=== PATIENT | male | born 1990 | race Caucasian/White ===

== ENCOUNTER 2024-08-01 16:00 | Emergency (ER) | payer OTHER, MEDICAID ==
[~2024-08-01] VITALS: Ht 185.4 cm; Wt 110.0 kg
[~2024-08-01 16:00] MED LIST: ALBU18; LORA-205; PAROXITINE
[2024-08-01] MEDS: diphenhdrAMINE HCL 50 MG/1 ML VL IV ONE (16:20)
[2024-08-01] MEDS: methylPREDNISolone SOD SUCC 125 MG/2 ML VL IV ONE (16:20)
[2024-08-01] MEDS: DexAMETHasone SOD PHOS 10MG/1ML VIAL INJ IV ONE (16:20)
[2024-08-01] MEDS: FAMOTIDINE (10MG/ML) 2ML VL IV ONE (16:20)
--- NOTE | 2024-08-01 16:20 | ED.PDOC ---
HPI Allergic reaction HPI Comments HPI: Poor Historian. 34-year-old male presents to the emergency department for allergic reaction. Patient after work this morning he went to the dentist to get a root canal done. He then went back to work and then when he came back home a took 1st dose of amoxicillin prescribed to him by his dentist. Patient states having history of penicillin allergy. Patient is started developing itchiness and feeling weak throughout. Vitals: Temp: 97F RR: 20 O2 sat: 98% HR: 138 BP: 117/87 PMH: Anxiety, Depression PSH: Denies Social history: tobacco use, denies ETOH use, denies drug use Meds: unknown allergies: Penicillins REVIEW OF SYSTEMS: CONSTITUTIONAL: Denies acute: fever, diaphoresis, chills, HEAD: Denies acute: headache, photophobia Eyes: Denies acute: Double vision, vision loss, eye pain, eye discharge. EARS: Denies acute: tinnitus, hearing loss, ear discharge, ear pain, THROAT: Denies acute: sore throat, swelling, difficulty swallowing , pain with swallowing, change in voice. NECK: Denies acute: neck pain, neck swelling, stiff neck. HEART: Denies acute : chest pain, palpitations, LUNGS: Denies acute: SOB, wheezing, cough, hemoptysis ABDOMEN: Denies acute: abdominal pain, Nausea, Vomiting, diarrhea, melena , hematemesis, hematochezia SKIN: Denies acute: lesions, EXTREMITIES: Denies acute: calf pain, numbness, tingling, weakness, denies pain in extremity. Denies acute: Low back pain. Neuro: Denies acute: focal neurological deficit, motor or sensory focal neurological deficit, tremors, seizure like activity, confusion, dizziness, change in mental status, loss of bowel or bladder function, cauda equina like symptoms. : Denies acute: dysuria, hematuria, flank pain, increase in urinary frequency. PSYCH: Denies acute: hallucination, suicidal ideation, homicidal ideation. PHYSICAL EXAM: General: Moderate acute distress, awake and alert. Head: normocephalic, atraumatic. Neck: supple, trachea is midline, no swelling. Throat: Normal phonation. No airway swelling, no drooling, no tripoding, no oral obstruction. No tongue swelling, no lip swelling Eyes:, no erythema, no purulent discharge, no proptosis, no icterus. Heart: regular tachycardia, no significant murmur appreciated. Lungs: no apparent respiratory distress, Able to speak in full sentences. No wheezing, no rhonchi, no crackles. No stridors Clear to auscultation bilaterally. Abdomen: non tender to palpation, non distended, soft, no guarding, no rebound, + bowel sounds. Obese Neuro: Awake, Alert, oriented to name, self, situation, follows commands GCS=15. Speech is normal. Skin: no petechia, no purpura, no cyanosis, non-pale, not jaundice. Lower extremities: --no - Pitting edema no deformity, no focal swelling, no calf TTP. Makes eye contact. moves all four extremities. Face: no apparent facial droop. Time Seen by MD: 16:15 Primary Care Provider: DR FRAZIER Reviewed Notes: Nurses Notes, Medications, Allergies Allergies: Coded Allergies: Penicillins (Verified Allergy, Unknown, UNKNOWN, 08/01/24) Home Meds Reported Medications Lorazepam (Ativan) 1 Mg Tab 01/27/10 Albuterol Sulfate (Ventolin Hfa) Aer 01/05/10 [Paroxitine] No Conflict Check 01/05/10 Information Source: Patient Past Medical History PAST MEDICAL HISTORY: Anxiety, Depression Surgical History: Denies all surgeries Family History Family History: Unknown Social History Smoker: Cigarettes, Less Than 1 Pack/Day Alcohol: Denies ETOH Use Drugs: Denies Drug Use Lives In: Home Was a procedure done? Was a procedure done?: No Differential diagnosis (all) Differential Diagnosis: Anaphylaxis, Angioedema, Bronchospasm, Contact Dermatitis, Drug Reaction, Hypotension, Renal Failure, Respiratory Failure, Shock, Urticaria X-Ray, Labs, Meds, VS Vital Signs Date Time Temp Pulse Resp B/P (MAP) Pulse Ox O2 Delivery O2 Flow Rate FiO2 08/01/24 22:13 95 18 146/111 (123) 93 08/01/24 17:36 110 08/01/24 16:34 97.0 138 20 117/87 (97) 98 Lab Test 08/01/24 19:47 08/01/24 19:30 08/01/24 19:06 08/01/24 18:08 Range/Units Lactic Acid Level 3.0 *H 0.4-2.0 mmol/L White Blood Count 15.4 H 4.4-10.8 10^3/uL Red Blood Count 5.53 4.5-5.90 10^6/uL Hemoglobin 18.9 H 13.5-17.5 g/dL Hematocrit 55.7 H 41.0-53.0 % Mean Corpuscular Volume 100.8 H 80.0-100.0 fL Mean Corpuscular Hemoglobin 34.1 H 28.0-32.0 pg Mean Corpuscular Hemoglobin Concent 33.9 32.0-36.0 g/dL Red Cell Distribution Width 13.5 11.8-14.3 % Platelet Count 231 140-450 10^3/uL Mean Platelet Volume 8.4 6.9-10.8 fL Neutrophils (%) (Auto) 90.0 H 37.0-80.0 % Lymphocytes (%) (Auto) 6.3 L 10.0-50.0 % Monocytes (%) (Auto) 3.1 0.0-12.0 % Eosinophils (%) (Auto) 0.2 0.0-7.0 % Basophils (%) (Auto) 0.4 0.0-2.0 % Neutrophils # (Auto) 13.9 H 1.6-8.6 10 ^3/uL Lymphocytes # (Auto) 1.0 0.4-5.4 10 ^3/uL Monocytes # (Auto) 0.5 0-1.3 10 ^3/uL Eosinophils # (Auto) 0 0-0.8 10 ^3/uL Basophils # (Auto) 0.1 0-0.2 10 ^3/uL Nucleated Red Blood Cells 0.0 % Troponin I High Sensitivity 19 5 </=54 ng/L Urine Color Light-orange Yellow Urine Clarity Turbid H Clear Urine pH 6.0 5.0-9.0 Urine Specific [place] 1.017 1.001-1.035 Urine Protein 1+ H Negative Urine Ketones Negative Negative Urine Blood Trace H Negative /uL Urine Nitrite Negative Negative Urine Bilirubin Negative Negative Urine Urobilinogen Normal Negative mg/dL Urine Leukocyte Esterase Negative Negative /uL Urine RBC 3 0 - 3 /hpf Urine WBC 15 0 - 3 /hpf Urine Squamous Epithelial Cells Few <5 /hpf Urine Amorphous Crystals Few None Seen /hpf Urine Bacteria Few H None Seen /hpf Urine Mucus Few None Seen Urine Glucose Trace Normal mg/dL Urine Opiates Screen Neg NEGATIVE Urine Fentanyl Screen Neg NEGATIVE Urine Barbiturates Screen Neg NEGATIVE Urine Phencyclidine Screen Neg NEGATIVE Urine Amphetamines Screen Neg NEGATIVE Urine Benzodiazepines Screen Neg NEGATIVE Urine Cocaine Screen Neg NEGATIVE Urine Cannabinoids Screen Neg NEGATIVE Test 08/01/24 16:37 Range/Units White Blood Count 18.9 H 4.4-10.8 10^3/uL Red Blood Count 6.22 H 4.5-5.90 10^6/uL Hemoglobin 21.3 *H 13.5-17.5 g/dL Hematocrit 61.7 H 41.0-53.0 % Mean Corpuscular Volume 99.2 80.0-100.0 fL Mean Corpuscular Hemoglobin 34.3 H 28.0-32.0 pg Mean Corpuscular Hemoglobin Concent 34.5 32.0-36.0 g/dL Red Cell Distribution Width 13.9 11.8-14.3 % Platelet Count 380 140-450 10^3/uL Mean Platelet Volume 8.9 6.9-10.8 fL Neutrophils (%) (Auto) 58.6 37.0-80.0 % Lymphocytes (%) (Auto) 35.4 10.0-50.0 % Monocytes (%) (Auto) 3.9 0.0-12.0 % Eosinophils (%) (Auto) 1.2 0.0-7.0 % Basophils (%) (Auto) 0.9 0.0-2.0 % Neutrophils # (Auto) 11.1 H 1.6-8.6 10 ^3/uL Lymphocytes # (Auto) 6.7 H 0.4-5.4 10 ^3/uL Monocytes # (Auto) 0.7 0-1.3 10 ^3/uL Eosinophils # (Auto) 0.2 0-0.8 10 ^3/uL Basophils # (Auto) 0.2 0-0.2 10 ^3/uL Nucleated Red Blood Cells 0.1 % Sodium Level 138 136-145 mmol/L Potassium Level 3.9 3.5-5.1 mmol/L Chloride Level 101 98-107 mmol/L Carbon Dioxide Level 22 20-31 mmol/L Anion Gap 15 5-15 Blood Urea Nitrogen 9 9-23 mg/dL Creatinine 1.17 0.700-1.30 mg/dL Glomerular Filtration Rate Calc 83 >90 mL/min BUN/Creatinine Ratio 7.7 L 10.0-20.0 Serum Glucose 198 H 74-106 mg/dL Lactic Acid Level 3.8 *H 0.4-2.0 mmol/L Calcium Level 10.2 8.7-10.4 mg/dL Magnesium Level 2.1 1.6-2.6 mg/dL Total Bilirubin 1.6 H 0.2-1.0 mg/dL Aspartate Amino Transferase (AST) 66 H 13-40 U/L Alanine Aminotransferase (ALT) 70 H 7-40 U/L Alkaline Phosphatase 78 46-116 U/L Troponin I High Sensitivity 3 L </=54 ng/L Total Protein 7.3 5.7-8.2 g/dL Albumin 4.2 3.2-4.8 g/dL Current Medications Medications (Trade) Dose Ordered Sig/Stephanie Route Start Time Stop Time Status Last Admin Sodium Chloride 1,000 ml @ 1,000 mls/hr Q1H ONCE IV 08/01/24 16:15 08/01/24 17:14 DC 08/01/24 16:31 Dexamethasone Sodium Phosphate (Decadron Injection) 20 mg ONCE ONCE IV 08/01/24 16:15 08/01/24 16:17 DC 08/01/24 16:20 Methylprednisolone Sodium Succinate (Solu Medrol) 250 mg ONCE ONCE IV 08/01/24 16:15 08/01/24 16:17 DC 08/01/24 16:20 Famotidine (Pepcid Injection) 20 mg ONCE ONCE IV 08/01/24 16:15 08/01/24 16:17 DC 08/01/24 16:20 Diphenhydramine HCl (Benadryl Injection) 50 mg ONCE ONCE IV 08/01/24 16:15 08/01/24 16:17 DC 08/01/24 16:20 Clindamycin Phosphate 50 ml @ 50 mls/hr ONCE ONCE IV 08/01/24 20:15 08/01/24 21:14 DC 08/01/24 21:[address] [address] Ph: [phone] DIAGNOSTIC IMAGING Diagnostic Imaging Report : [id number] Signed PATIENT: J LUIS PRAJAPATI ACCT: [id number] UNIT: [id number] : 1990 LOC: ER ROOM / BED: / AGE / SEX: 34 / M ADM STATUS: REG ER SERVICE 15 ORDERING PHYSICIAN: GERI RIVERA DO PROCEDURE(s): CXRP - CHEST PORTABLE REASON: allergic rxn ORDER NUMBER(s): [id number], ACCESSION NUMBER(s): [id number] CHEST RADIOGRAPH Indication: allergic rxn Technique: Single frontal view of the chest was obtained Comparison: None FINDINGS: Lines and Tubes: None Lungs: The left costophrenic angle is not included in the image. Otherwise, no focal consolidation Pleura: No effusion. No pneumothorax. Cardiomediastinal contours: Unremarkable Bones: No acute osseous abnormality. IMPRESSION: The left costophrenic angle is outside the field of view. Otherwise, no acute cardiopulmonary disease. ATED BY: EBONIE DOSHI DO DICTATED DATE/TIME: 08/01/241852 SIGNED BY: EBONIE DOSHI DO SIGNED DATE/TIME: 08/01/241852 CC: Time of 1ST Reevaluation: 18:54 Reevaluation 1ST: Improved Time of 2ND Reevaluation: 20:46 (The case was discussed with the [facility] admitting team (HPI, physical exam, labs and diagnostic tests that were available at the time of disposition, ED course, treatment plan) on the phone. They agreed to transfer the patient by ALS to their facility for further evaluation and treatment of the patient's presentation. Authorization #[id number]. Kianauber) Reevaluation 2ND: Improved Patient Education/Counseling: Diagnosis, Treatment Family Education/Counseling: No Family Present Comments Patient presented with the above HPI.---allergic reaction---workup was initiated. patient was found with the above mentioned diagnosis. Patient was given: Benadryl, Pepcid, Solu-Medrol, Decadron, fluids. Patient was given antibiotics given his leukocytosis and an elevated lactic acid and initial tachycardia. Patient was given 2 L normal saline bolus Patient ED course and VS have been stabilized. Patient has been reassessed in the ED and remained in a stable condition. Pertinent incidental findings were discussed with the patient and/or family. Patient/family voices understanding and is agreeable with plan. Patient has been observed in the ED adequate length of time to insure improvement/stability. patient was transferred to [facility] per insurance requirement to the medicine team for further evaluation and treatment of their presentation. All the reports of any imaging studies that were ordered by myself were reviewed by myself. Departure 1 Departure Time of Disposition: 18:16 Impression: Primary Impression: Allergic reaction Additional Impressions: Leukocytosis Elevated lactic acid level UTI (urinary tract infection) Disposition: 02 SHORT TERM HOSPITAL Admit to: Tele Condition: Guarded Discharged With: Self Critical Care Note Critical Care Time?: Yes (45 min-critical care time only) I personally scribed for GERI RIVERA DO ([email or web address]) on 08/01/24 at 17:22. Electronically submitted by Scot Carter ([email or web address]). I personally scribed for GERI RIVERA DO ([email or web address]) on 08/01/24 at 20:51. Electronically submitted by Wendy Durant ([email or web address]). GERI RIVERA DO Aug 01, 2024 16:20
[2024-08-01] MEDS: SODIUM CHLORIDE 0.9% 1,000 ML IV ONE ×2 (16:31→21:30)
[2024-08-01 17:05] LABS: Basophils # (auto) 0.2 10 ^3/uL (0-0.2); Mean Corpuscular Volume 99.2 fL (80.0-100.0); Monocytes # (auto) 0.7 10 ^3/uL (0-1.3); Neutrophils % (auto) 58.6 % (37.0-80.0)
[2024-08-01 17:07] LABS: Basophils % (auto) 0.9 % (0.0-2.0); Eosinophils # (auto) 0.2 10 ^3/uL (0-0.8); Eosinophils % (auto) 1.2 % (0.0-7.0); Lymphocytes # (auto) 6.7 10 ^3/uL (0.4-5.4); Lymphocytes % (auto) 35.4 % (10.0-50.0); Mean Corpuscular Hemoglobin 34.3 pg (28.0-32.0); Mean Corpuscular Hgb Conc. 34.5 g/dL (32.0-36.0); Monocytes % (auto) 3.9 % (0.0-12.0); Neutrophils # (auto) 11.1 10 ^3/uL (1.6-8.6); Nucleated Red Blood Cells % 0.1 %; Platelet Count (auto) 380 10^3/uL (140-450); Red Blood Cells 6.22 10^6/uL (4.5-5.90); Red Cell Distribution Width 13.9 % (11.8-14.3); White Blood Cell 18.9 10^3/uL (4.4-10.8)
[2024-08-01 17:14] LABS: Hemoglobin 21.3 g/dL (13.5-17.5)
[2024-08-01 17:15] LABS: Hematocrit 61.7 % (41.0-53.0)
[2024-08-01 17:26] LABS: Albumin 4.2 g/dL (3.2-4.8); Alkaline Phosphatase 78 U/L (46-116); Anion Gap 15 (5-15); BUN/Creatinine Ratio 7.7 (10.0-20.0); Calcium 10.2 mg/dL (8.7-10.4); Carbon Dioxide 22 mmol/L (20-31); Chloride 101 mmol/L (98-107); Magnesium 2.1 mg/dL (1.6-2.6); Potassium 3.9 mmol/L (3.5-5.1); Sodium 138 mmol/L (136-145)
[2024-08-01 17:27] LABS: Total Protein 7.3 g/dL (5.7-8.2)
[2024-08-01 18:00] LABS: Alanine Aminotransferase 70 U/L (7-40); Aspartate Aminotransferase 66 U/L (13-40); Bilirubin, Total 1.6 mg/dL (0.2-1.0); Blood Urea Nitrogen 9 mg/dL (9-23); Glucose 198 mg/dL (74-106)
--- NOTE | 2024-08-01 18:55 | DVH ---
CHEST RADIOGRAPH Indication: allergic rxn Technique: Single frontal view of the chest was obtained Comparison: None FINDINGS: Lines and Tubes: None Lungs: The left costophrenic angle is not included in the image. Otherwise, no focal consolidation Pleura: No effusion. No pneumothorax. Cardiomediastinal contours: Unremarkable Bones: No acute osseous abnormality. IMPRESSION: The left costophrenic angle is outside the field of view. Otherwise, no acute cardiopulmonary diseas e.
[2024-08-01 19:30] LABS: Lactic Acid w/Reflex 3.8 mmol/L (0.4-2.0)
[2024-08-01 19:59] LABS: Eosinophils # (auto) 0 10 ^3/uL (0-0.8)
[2024-08-01 20:01] LABS: Basophils # (auto) 0.1 10 ^3/uL (0-0.2); Basophils % (auto) 0.4 % (0.0-2.0); Eosinophils % (auto) 0.2 % (0.0-7.0); Hematocrit 55.7 % (41.0-53.0); Hemoglobin 18.9 g/dL (13.5-17.5); Lymphocytes % (auto) 6.3 % (10.0-50.0); Mean Corpuscular Hemoglobin 34.1 pg (28.0-32.0); Mean Corpuscular Hgb Conc. 33.9 g/dL (32.0-36.0); Mean Corpuscular Volume 100.8 fL (80.0-100.0); Monocytes # (auto) 0.5 10 ^3/uL (0-1.3); Monocytes % (auto) 3.1 % (0.0-12.0); Neutrophils # (auto) 13.9 10 ^3/uL (1.6-8.6); Platelet Count (auto) 231 10^3/uL (140-450); Red Blood Cells 5.53 10^6/uL (4.5-5.90); Red Cell Distribution Width 13.5 % (11.8-14.3); White Blood Cell 15.4 10^3/uL (4.4-10.8)
[2024-08-01 20:49] LABS: Amphetamine Screen, Urine Neg (NEGATIVE); Barbiturate Scree,Urine Neg (NEGATIVE); Benzodiazephine Screen, Urine Neg (NEGATIVE); Cannabinoid Screen, Urine Neg (NEGATIVE); Cocaine Screen, Urine Neg (NEGATIVE); Opiate Scree,Urine Neg (NEGATIVE); Phencyclidine Screen, Urine Neg (NEGATIVE)
[2024-08-01 20:53] LABS: Urine Amorphous Crystal FEW /hpf (None Seen); Urine Bacteria FEW /hpf (None Seen); Urine Blood TRACE /uL (Negative); Urine Clarity Turbid (Clear); Urine Color Light-Orange (Yellow); Urine Mucus FEW (None Seen); Urine Protein, UAD 1+ (Negative); Urine Specific Gravity 1.017 (1.001-1.035); Urine Urobilinogen Normal (Negative); Urine WBC 15 /hpf (0 - 3)
[2024-08-01] MEDS: CLINDAMYCIN 900MG IV 50 ML IV ONE (21:42)
[2024-08-02 04:00] VITALS: PULSE 88; RESP 16; O2SAT 97
[2024-08-02 04:11] VITALS: BP 150/88; PULSE 94; RESP 18; TEMP 98; O2SAT 96
--- NOTE | 2024-08-02 10:39 | ECG ---
[facility] Test Date: 2024-08-01 Test Time: 17:36:52 Pat Name: J LUIS PRAJAPATI Department: ER Room: Gender: M Insurance Associate: IC : 1990 Requested By: GERI RIVERA Order Number: [id number] Reading MD: Guillermo Benjamin Measurements Intervals [place] Rate: 110 P: 32 OK: 143 QRS: 137 QRSD: 83 T: 14 QT: 334 QTc: 452 Interpretive Statements Sinus tachycardia Right axis deviation Electronically Signed On 08-02-2024 16:25:08 PST by Guillermo Benjamin Please click the below link to view image of tracing.
== END 2024-08-02 04:20 | disposition short-term general hospital (02) ==
LOC: ER 16:00
DX: T78.49XA Other allergy, initial encounter (principal); D72.829 Elevated white blood cell count, unspecified; E87.20 Acidosis, unspecified; N39.0 Urinary tract infection, site not specified; F17.210 Nicotine dependence, cigarettes, uncomplicated; F41.9 Anxiety disorder, unspecified; Z88.0 Allergy status to penicillin; F32.A Depression, unspecified; Z79.899 Other long term (current) drug therapy; X58.XXXA Exposure to other specified factors, initial encounter
CPT/HCPCS: 36415; 71045; 80053; 80307; 81001; 83605; 83735; 84484; 85025; 93005; 96361; 96365; 96375; 99285; J1100; J1200; J2919; J3490; J7030